=== PATIENT | female | born 2000 | race Caucasian/White ===

== ENCOUNTER 2022-10-09 14:52 | Emergency (ER) | payer MEDICAID ==
[2022-10-09 15:58] VITALS: BP 107/75; TEMP 98.3
[2022-10-09 16:05] VITALS: PULSE 64; RESP 18
[2022-10-09] MEDS ORDERED: Cortisporin Ophth Oint 3.5 GM ONE (16:06)
--- NOTE | 2022-10-09 16:07 | ERPHSYRPT ---
- History of Present Illness Time Seen by Provider: 10/09/22 16:04 Source: patient Exam Limitations: no limitations Patient Subjective Stated Complaint: here for bilat ear pain for 2 days, no fever, was seen at clinic yesterday and given nasal spray Triage Nursing Assessment: pt alert, walked. resp easy, skin w/d/p, no edema ntoed Physician History: here for bilat ear pain for 2 days, no fever, was seen at clinic yesterday and given nasal spray Timing/Duration: gradual onset ENT Location: ear (L) Prearrival Treatment: no prearrival treatment Associated Symptoms: denies symptoms Allergies/Adverse Reactions: No Known Drug Allergies Allergy (Unverified 10/09/22 15:50) Home Medications: Cephalexin Mh 500 mg [Keflex 500 mg] 500 mg PO TID 10/09/22 [History] Hx Tetanus, Diphtheria Vaccination/Date Given: Yes Hx Influenza Vaccination/Date Given: No Hx Pneumococcal Vaccination/Date Given: No Immunizations Up to Date: Yes Travel Risk - International Travel Have you traveled outside of the country in past 3 weeks: No - Coronavirus Screening Are you exhibiting any of the following symptoms?: No - Vaccine Status Have you recieved a Covid-19 vaccination: No - Review of Systems Constitutional: No Fever, No Chills Eyes: No Symptoms Ears, Nose, & Throat: Ear Pain, No Ear Discharge, No Hearing Changes, No Tinnitus, No Nose Discharge Respiratory: No Cough, No Dyspnea Cardiac: No Chest Pain, No Edema, No Syncope Abdominal/Gastrointestinal: No Abdominal Pain, No Nausea, No Vomiting, No Diarrhea Genitourinary Symptoms: No Dysuria Musculoskeletal: No Back Pain, No Neck Pain Skin: No Rash Neurological: No Dizziness, No Focal Weakness, No Sensory Changes Psychological: No Symptoms Endocrine: No Symptoms All Other Systems: Reviewed and Negative - Past Medical History Pertinent Past Medical History: No - Past Surgical History Past Surgical History: Yes Other Surgical History: tubes in ears - Social History Smoking Status: Never smoker Exposure to second hand smoke: No Drug Use: none Patient Lives Alone: No - Female History Hx Last Menstrual Period: september Hx Now: No - Nursing Vital Signs Nursing Vital Signs: Initial Vital Signs Temperature 98.3 F 10/09/22 15:57 Pulse Rate 70 10/09/22 15:57 Respiratory Rate 16 10/09/22 15:57 Blood Pressure 107/75 10/09/22 15:57 O2 Sat by Pulse Oximetry 96 10/09/22 15:57 Pain Scale Pain Intensity 10 - Physical Exam General Appearance: no apparent distress, alert Eye Exam: bilateral eye: PERRL, EOMI Ear Exam: bilateral ear: auricle normal, canal normal, TM normal Nasal Exam: normal inspection Throat Exam: pharynx normal, moist mucus membranes, No tonsillar exudate Neck Exam: supple Cardiovascular/Respiratory Exam: normal breath sounds, regular rate/rhythm Abdominal Exam: non-tender, soft Neurologic Exam: alert, oriented x 3, sensation nml, No motor deficits Skin Exam: normal color, warm, dry SpO2: 96 - Course Nursing assessment & vital signs reviewed: Yes - Progress Progress: unchanged Counseled pt/family regarding: diagnosis, need for follow-up Medical Desision Making - Risk of complications Minimal Risk: Minimal risk of morbidity - Departure Departure Disposition: Home Clinical Impression: Allergic otitis media of both ears Qualifiers: Chronicity: subacute Recurrence: recurrent Qualified Code(s): H65.116 - Acute and subacute allergic otitis media (mucoid) (sanguinous) (serous), recurrent, bilateral Condition: Stable Critical Care Time: No Referrals: KRYSTINA MUELLER PETROLEUM ENGINEER [Primary Care Provider] - Follow Up with PCP/3 days Additional Instructions: Use [id number] Claritin 10 mg daily or Zyrtec 10 mg daily. Continue using nasal spray and your antibiotic which was given to you yesterday. Follow-up with your primary care physician in next 3 days. Discharge/Care Plan GLORIA LA was seen on 10/09/22 in the Emergency Room. The patient was counseled regarding Diagnosis,Lab results, Imaging studies, need for follow up and when to return to the Emergency Room. Prescriptions given: Discharge Note I have spoken with the patient and/or caregivers. I have explained the patient's condition, diagnosis and treatment plan based on the information available to me at this time. I have answered the patient's and/or caregiver's questions and add ressed any concerns. The patient and/or caregivers have as good understanding of the patient's diagnosis, condition and treatment plan as can be expected at this point. The vital signs have been stable. The patient's condition is stable and appropriate for discharge from the emergency department. The patient will pursue further outpatient evaluation with the primary care physician or other designated or consulting physician as outlined in the discharge instructions. The patient and/or caregivers are agreeable to this plan of care and follow-up instructions have been explained in detail. The patient and/or caregivers have received these instruction. The patient/and or caregivers are aware that any significant change in condition or worsening of symptoms should prompt an immediate return to this or the closest emergency department or call 911. GLORIA LA was seen on 10/09/22 n the Emergency Room. At that time you were treated for an emergent condition, during your visit Laboratory, Radiology and/or other procedures may have been ordered. It is very important that you follow-up with your Primary Care Physician KRYSTINA MUELLER NP within the next 24-48 hours to review your Emergency Room visit and the final results of testing that was ordered. Some test results such as Urine Cultures, Blood Cu ltures, and other cultures if ordered will not be finalized for 24-48 hours. If you do not have a Primary Care Provider please call the medical records department at [phone] ext [phone] to obtain a copy of your results or you may sign into our patient portal to obtain these results by visiting us @ [email or web address] and completing the following steps: 1. Click on the Patient Portal link 2. Click the Patient Self Enrollment Link to complete the enrollment form and entering your 3. Once the enrollment form is completed you will receive an email with a t emporary ID and password at the email address you provided. 4. Next choose a user name and password. Your user name must be at least 4 characters long and your password must be at least 4 characters long. 5. Choose a security question from the list and provide your answer to the question. If you already have signed into the Health Portal you may access your Health Care Information 27/09 by the following steps: 1. Login to our website @ [email or web address] 2. Enter your original user name and password. FAQS The [facility] Health Portal is an online tool that contains your Lab Results, Radiology Reports, Visit History, Discharge Instructions and Health Summary Lab and Radiology Results will not be available for 72 hours on the portal. The Portal is a secure site, passwords are encryted and URLs are re-written so they cannot be copied and pasted. You and authorized family members are the only ones who can access your Portal. Also there is a timeout feature that protects your information if you leave the Portal page open. If you have technical difficulty please use the Contact Us link on the page this will allow you to submit any questions you have regarding the Portal or you may contact the Medical Record Department at [phone].
[2022-10-09 16:09] VITALS: O2SAT 96
[2022-10-09] MEDS ORDERED: CORTISPORIN EAR DROPS 10 ML SUSPENSION OT ONE (16:09)
[2022-10-09] MEDS ORDERED: CORTISPORIN EAR DROPS Solution 1OML OT SCH (16:15)
[2022-10-10] MEDS ORDERED: CORTISPORIN EAR DROPS 10 ML SUSPENSION OT SCH (10:00)
== END 2022-10-09 16:28 | disposition home or self-care (01) ==
LOC: ED 14:52
DX: H65.116 Acute and subacute allergic otitis media (mucoid) (sanguinous) (serous), recurrent, bilateral (principal); H92.03 Otalgia, bilateral; Z79.899 Other long term (current) drug therapy; Z28.310 Unvaccinated for COVID-19
CPT/HCPCS: 99281; A9270-GY

== ENCOUNTER 2023-05-09 23:57 | Emergency (ER) | payer MEDICAID, OTHER ==
--- NOTE | 2023-05-10 00:06 | ERPHSYRPT ---
- History of Present Illness Time Seen by Provider: 05/10/23 00:06 Historian: patient, family Exam Limitations: no limitations Physician History: This is a 22-year-old white female patient who has multiple pain complaints including bilateral lower ribs, epigastric, bilateral upper quadrants and flank pain. Patient is on Diflucan for a yeast infection. She does state that she is supposed to get the results of her urinalysis sometime later today on 05/10/2023. Diflucan is the only medication she is taking. She has no known drug allergies. She never had this pain sequence in the past. Timing/Duration: hour(s) (Greater than 24 hours ago) Activities at Onset: none Quality: sharpness, stabbing Location: epigastric Chest Pain Radiation: abdomen (Bilateral upper quadrants) Severity of Pain-Max: mild (To moderate) Severity of Pain-Current: mild (To moderate) Modifying Factors: Improves With: nothing Associated Symptoms: abdominal pain (Epigastric and bilateral upper quadrants) Prior Chest Pain/Cardiac Workup: no prior chest pain, no prior cardiac workup Nitro Today/Relief: no nitro taken today Aspirin Treatment Today: no aspirin today Allergies/Adverse Reactions: No Known Drug Allergies Allergy (Verified 05/09/23 23:59) Home Medications: Fluconazole 150 mg PO DAILY 05/09/23 [History] Hx Tetanus, Diphtheria Vaccination/Date Given: Yes Hx Influenza Vaccination/Date Given: No Hx Pneumococcal Vaccination/Date Given: No Travel Risk - International Travel Have you traveled outside of the country in past 3 weeks: No - Coronavirus Screening Are you exhibiting any of the following symptoms?: No Close contact with a COVID-19 positive Pt in past 14-21 Days: No - Vaccine Status Have you recieved a Covid-19 vaccination: No - Review of Systems Constitutional: No Symptoms Eyes: No Symptoms Ears, Nose, & Throat: No Symptoms Respiratory: No Symptoms Cardiac: No Symptoms Abdominal/Gastrointestinal: Abdominal Pain (Epigastric and bilateral upper quadrants) Genitourinary Symptoms: No Symptoms Musculoskeletal: No Symptoms Skin: No Symptoms Neurological: No Symptoms Psychological: No Symptoms Endocrine: No Symptoms Hematologic/Lymphatic: No Symptoms Immunological/Allergic: No Symptoms All Other Systems: Reviewed and Negative - Past Medical History Pertinent Past Medical History: No - Past Surgical History Past Surgical History: Yes Other Surgical History: tubes in ears - Social History Smoking Status: Never smoker Exposure to second hand smoke: No Drug Use: none Patient Lives Alone: No - Nursing Vital Signs Nursing Vital Signs: Initial Vital Signs Temperature 98.6 F 05/09/23 23:59 Pulse Rate 98 H 05/09/23 23:59 Respiratory Rate 18 05/09/23 23:59 Blood Pressure 113/87 05/09/23 23:59 O2 Sat by Pulse Oximetry 100 05/09/23 23:59 Pain Scale Pain Intensity 4 - Physical Exam General Appearance: mild distress, alert, anxiety, thin Eye Exam: PERRL/EOMI, eyes nml inspection Ears, Nose, Throat Exam: normal ENT inspection, moist mucous membranes Neck Exam: normal inspection, non-tender, supple, full range of motion Respiratory Exam: normal breath sounds, lungs clear, airway intact, No chest tenderness, No respiratory distress Cardiovascular Exam: regular rate/rhythm, normal heart sounds, normal peripheral pulses Gastrointestinal/Abdomen Exam: soft, normal bowel sounds, tenderness (Lateral upper quadrants and epigastrium), guarding (Bilateral upper quadrants and epigastrium to palpation), No rebound Pelvic Exam: not done Rectal Exam: not done Extremity Exam: normal inspection, normal range of motion, pelvis stable Neurologic Exam: alert, oriented x 3, cooperative, metal bending machine operator II-XII nml as tested, nml cerebellar function, nml station & gait, sensation nml Skin Exam: normal color, warm, dry Lymphatic Exam: No adenopathy SpO2 Interpretation: normal O2 Delivery: Room Air - Course Nursing assessment & vital signs reviewed: Yes EKG Interpreted by Me: RATE (92), Sinus Rhythm, NORMAL AXIS, NORMAL INTERVALS, NORMAL QRS, NORMAL ST-T, Other Ordered Tests: Active Orders 24 hr Category Date Time Status EKG-ER Only STAT Care 05/10/23 00:19 Active IV Insertion STAT Care 05/10/23 00:19 Active ABDOMEN AND PELVIS W/0 CONTRAS [CT] Stat Exams 05/10/23 00:20 Completed AMYLASE Stat Lab 05/10/23 00:25 Completed CBC W DIFF Stat Lab 05/10/23 00:19 Completed CMP Stat Lab 05/10/23 00:25 Completed HCG QUALITATIVE, SERUM Stat Lab 05/10/23 00:25 Completed LIPASE Stat Lab 05/10/23 00:25 Completed TROPONIN Q4H Lab 05/10/23 00:25 Completed TROPONIN Q4H Lab 05/10/23 04:30 Ordered TROPONIN Q4H Lab 05/10/23 08:30 Ordered UA W/RFX UR CULTURE Stat Lab 05/10/23 00:25 Completed Medication Summary Discontinued Medications Generic Name Dose Route Start Last Admin Trade Name Monisha PRN Reason Stop Dose Admin Sodium Chloride 500 mls @ 500 mls/hr 05/10/23 01:22 05/10/23 02:41 Sodium Chloride 0.9% 500 Ml IV 05/10/23 02:21 Infused .Q1H ONE Infusion Sodium Chloride Confirm 05/10/23 01:35 Sodium Chloride 0.9% 500 Ml Administered 05/10/23 01:36 Dose 500 mls @ ud IV .STK-MED ONE Ketorolac Tromethamine 30 mg 05/10/23 02:27 05/10/23 02:33 Ketorolac Tromethamine 30 Mg/Ml Inj IV 05/10/23 02:28 30 mg STAT ONE Administration Ketorolac Tromethamine Confirm 05/10/23 02:31 Ketorolac Tromethamine 30 Mg/Ml Inj Administered 05/10/23 02:32 Dose 30 mg .ROUTE .STK-MED ONE Ondansetron HCl 4 mg 05/10/23 02:27 05/10/23 02:33 Ondansetron Hcl 4 Mg/2 Ml Vial IV 05/10/23 02:28 4 mg STAT ONE Administration Ondansetron HCl Confirm 05/10/23 02:31 Ondansetron Hcl 4 Mg/2 Ml Vial Administered 05/10/23 02:32 Dose 4 mg .ROUTE .STK-MED ONE Lab/Rad Data: Laboratory Result Diagrams 05/10/23 00:19 05/10/23 00:25 Laboratory Results 05/10/23 05/10/23 05/10/23 Range/Units 00:25 00:25 00:25 WBC (4.0-10.5) x10^3/uL RBC (4.1-5.4) x10^6/uL Hgb (12.0-16.0) g/dL Hct (35-47) % MCV (78-100) fL MCH (26-32) pg MCHC (32-36) g/dL RDW (11.5-14.0) % Plt Count (150-450) x10^3/uL MPV (7.5-11.0) fL Gran % (36.0-66.0) % Immature Gran % (Auto) (0.00-0.4) % Nucleat RBC Rel Count (0.00-0.1) % Eos # (Auto) (0-0.5) x10^3/uL Immature Gran # (Auto) (0.00-0.03) x10^3u/L Absolute Lymphs (auto) (1.0-4.6) x10^3/uL Absolute Monos (auto) (0.0-1.3) x10^3/uL Absolute Nucleated RBC (0.00-0.01) x10^3u/L Lymphocytes % (24.0-44.0) % Monocytes % (0.0-12.0) % Eosinophils % (0.00-5.0) % Basophils % (0.0-0.4) % Absolute Granulocytes (1.4-6.9) x10^3/uL Basophils # (0-0.4) x10^3/uL Sodium 138 (135-145) mmol/L Potassium 3.7 (3.5-5.1) mmol/L Chloride 101 (98-107) mmol/L Carbon Dioxide 25 (22-30) mmol/L Anion Gap 15.5 H (5-15) MEQ/L BUN 14 (7-17) mg/dL Creatinine 0.71 (0.52-1.04) mg/dL Estimated GFR 124.8 ML/MIN Glucose 116 H (74-106) mg/dL Calcium 10.3 H (8.4-10.2) mg/dL Total Bilirubin 2.00 H (0.2-1.3) mg/dL AST 44 H (14-36) U/L ALT 42 H (0-35) U/L Alkaline Phosphatase 105 (38-126) U/L Troponin I < 0.012 (0.000-0.034) ng/mL Serum Total Protein 8.3 H (6.3-8.2) g/dL Albumin 4.9 (3.5-5.0) g/dL Amylase 88 (30-110) U/L Lipase 102 (23-300) U/L Serum HCG, Qual NEGATIVE (NEGATIVE) Urine Color (Yellow) Urine Appearance (Clear) Urine pH (4.6-8.0) Ur Specific [place] (1.005-1.030) Urine Protein (Negative) Urine Glucose (UA) (Negative) mg/dL Urine Ketones (Negative) Urine Blood (Negative) Urine Nitrite (Negative) Urine Bilirubin (Negative) Urine Urobilinogen (0.2) mg/dL Ur Leukocyte Esterase (Negative) U Hyaline Cast (Auto) (0-2) /LPF Urine Microscopic RBC (0-5) /HPF Urine Microscopic WBC (0-5) /HPF Ur Epithelial Cells (None Seen) /HPF Urine Bacteria (None Seen) /HPF Urine Culture Reflexed (NO) 05/10/23 05/10/23 Range/Units 00:25 00:19 WBC 14.7 H (4.0-10.5) x10^3/uL RBC 4.38 (4.1-5.4) x10^6/uL Hgb 13.2 (12.0-16.0) g/dL Hct 40.0 (35-47) % MCV 91.3 (78-100) fL MCH 30.1 (26-32) pg MCHC 33.0 (32-36) g/dL RDW 12.4 (11.5-14.0) % Plt Count 241 (150-450) x10^3/uL MPV 10.1 (7.5-11.0) fL Gran % 81.6 H (36.0-66.0) % Immature Gran % (Auto) 0.5 H (0.00-0.4) % Nucleat RBC Rel Count 0.0 (0.00-0.1) % Eos # (Auto) 0.02 (0-0.5) x10^3/uL Immature Gran # (Auto) 0.08 H (0.00-0.03) x10^3u/L Absolute Lymphs (auto) 1.71 (1.0-4.6) x10^3/uL Absolute Monos (auto) 0.85 (0.0-1.3) x10^3/uL Absolute Nucleated RBC 0.00 (0.00-0.01) x10^3u/L Lymphocytes % 11.7 L (24.0-44.0) % Monocytes % 5.8 (0.0-12.0) % Eosinophils % 0.1 (0.00-5.0) % Basophils % 0.3 (0.0-0.4) % Absolute Granulocytes 11.96 H (1.4-6.9) x10^3/uL Basophils # 0.04 (0-0.4) x10^3/uL Sodium (135-145) mmol/L Potassium (3.5-5.1) mmol/L Chloride (98-107) mmol/L Carbon Dioxide (22-30) mmol/L Anion Gap (5-15) MEQ/L BUN (7-17) mg/dL Creatinine (0.52-1.04) mg/dL Estimated GFR ML/MIN Glucose (74-106) mg/dL Calcium (8.4-10.2) mg/dL Total Bilirubin (0.2-1.3) mg/dL AST (14-36) U/L ALT (0-35) U/L Alkaline Phosphatase (38-126) U/L Troponin I (0.000-0.034) ng/mL Serum Total Protein (6.3-8.2) g/dL Albumin (3.5-5.0) g/dL Amylase (30-110) U/L Lipase (23-300) U/L Serum HCG, Qual (NEGATIVE) Urine Color Yellow (Yellow) Urine Appearance Turbid A (Clear) Urine pH 7.5 (4.6-8.0) Ur Specific [place] 1.025 (1.005-1.030) Urine Protein Trace A (Negative) Urine Glucose (UA) Negative (Negative) mg/dL Urine Ketones 40 A (Negative) Urine Blood Negative (Negative) Urine Nitrite Negative (Negative) Urine Bilirubin Negative (Negative) Urine Urobilinogen 0.2 (0.2) mg/dL Ur Leukocyte Esterase Negative (Negative) U Hyaline Cast (Auto) NONE SEEN (0-2) /LPF Urine Microscopic RBC 0-2 (0-5) /HPF Urine Microscopic WBC 0-2 (0-5) /HPF Ur Epithelial Cells Few (None Seen) /HPF Urine Bacteria None Seen (None Seen) /HPF Urine Culture Reflexed NO (NO) - Progress Progress: improved, re-examined Air Movement: good Progress Note: 05/10/23 00:18 This patient's medical issue is 1 of moderate complexity. The level of co mplexity in the workup performed is based on review of the patient's past medical history, review of the patient's medication list, review of the patient's drug allergy list, history present illness and physical findings on examination. The workup in this patient includes placement of intravenous line, CBC, CMP, urinalysis, amylase, lipase, D-dimer, troponin level and CT scan of the abdomen and pelvis as well as test. 05/10/23 03:25 I interpreted the patient's laboratory data results. Patient has mildly elevated LFTs of uncertain significance. Patient has evidence of ketones in her urine which could suggest dehydration. CT scan of the abdomen pelvis was interpreted by the radiologist. There are no acute abnormality seen in the abdomen pelvis by noncontrast criteria. There are a few reactive right ileocecal valve lymph nodes.? Mesenteric adenitis. Blood Culture(s) Obtained: No Antibiotics given: No Counseled pt/family regarding: lab results, diagnosis, need for follow-up, rad results Medical Desision Making - Independent Historian Additional History obtained from: Relative/friend - Diagnostic Testing Diagnostic test were ordered, analyzed, and reviewed by me: Yes Radiological Interpretation: Reviewed by me, Teleradiologist Report - Risk of complications Minimal Risk: Minimal risk of morbidity - Departure Departure Disposition: Home Clinical Impression: Abdominal pain, Flank pain, Dehydration, Elevated LFTs Condition: Stable Critical Care Time: No Referrals: PANDA PIZARRO NP [NON-STAFF PHY W/O PRIVILEGES] - Follow up/PCP as directed Additional Instructions: Drink plenty of fluids. Hold your Diflucan until you speak with your prescriber later today, 05/10/2023, to determine if the need for Diflucan is still necessary. Use Tylenol and ibuprofen for pain control if there are no contraindications.
[2023-05-10 00:15] VITALS: TEMP 98.6
[2023-05-10 00:35] LABS: Absolute Neutrophil Ct (ANC) 11.96 x10^3/uL (1.4-6.9); BASOPHIL % 0.3 % (0.0-0.4); Basophil (Absolute #) 0.04 x10^3/uL (0-0.4); Eosinophil % 0.1 % (0.00-5.0); Eosinophil (Absolute #) 0.02 x10^3/uL (0-0.5); Hemoglobin 13.2 g/dL (12.0-16.0); IMMATURE GRAN # 0.08 x10^3u/L (0.00-0.03); IMMATURE GRAN % 0.5 % (0.00-0.4); Lymphocyte (Absolute #) 1.71 x10^3/uL (1.0-4.6); Lymphocytes % 11.7 % (24.0-44.0); Mean Cell Volume 91.3 fL (78-100); Mean Corpuscular Hemoglobin 30.1 pg (26-32); Mean Platelet Volume 10.1 fL (7.5-11.0); Monocyte (Absolute #) 0.85 x10^3/uL (0.0-1.3); Monocytes % 5.8 % (0.0-12.0); Neutrophil % 81.6 % (36.0-66.0); Platelet Count 241 x10^3/uL (150-450); Red Blood Count 4.38 x10^6/uL (4.1-5.4); Red Cell Distribution Width 12.4 % (11.5-14.0); White Blood Count 14.7 x10^3/uL (4.0-10.5)
[2023-05-10 00:42] LABS: Appearance Turbid (Clear); Bacteria None Seen /HPF (None Seen); Bilirubin Negative (Negative); Blood Negative (Negative); Epithelial Cells Few /HPF (None Seen); Glucose, Urine Negative (Negative); Hyaline Casts NONE SEEN /LPF (0-2); Ketones 40 (Negative); Leukocyte Esterase Negative (Negative); Nitrite Negative (Negative); Ph 7.5 (4.6-8.0); Protein,Urine Dip Trace (Negative); RBC 0-2 /HPF (0-5); Specific Gravity 1.025 (1.005-1.030); Urobilinogen 0.2 mg/dL (0.2); WBC 0-2 /HPF (0-5)
[2023-05-10 00:45] LABS: ADD URINE CULTURE? NO (NO)
[2023-05-10 00:49] LABS: HCG SERUM TEST NEGATIVE (NEGATIVE)
[2023-05-10 00:52] LABS: ALBUMIN 4.9 g/dL (3.5-5.0); ANION GAP 15.5 MEQ/L (5-15); Calcium 10.3 mg/dL (8.4-10.2); Creatinine 1 0.71 mg/dL (0.52-1.04); EST GLOMERULAR FILTRATION RATE 124.8 ML/MIN; Potassium 3.7 mmol/L (3.5-5.1); Total Protein 8.3 g/dL (6.3-8.2)
[2023-05-10] MEDS ORDERED: Sodium Chloride 0.9% 500 ML 500 ML IV ONE (01:35)
[2023-05-10] MEDS: Sodium Chloride 0.9% 500 ML 500 ML IV ONE (01:41)
[2023-05-10] MEDS ORDERED: Zofran 4 MG/2 ML VIAL ONE (02:31)
[2023-05-10] MEDS ORDERED: TORAdol 30 mg Injection ONE (02:31)
[2023-05-10] MEDS: Zofran 4 MG/2 ML VIAL IV ONE (02:33)
[2023-05-10] MEDS: TORAdol 30 mg Injection IV ONE (02:33)
--- NOTE | 2023-05-10 02:37 | XRAY ---
CLINICAL HISTORY: B UQ and epigastric abdominal pain TECHNIQUE: CT of the abdomen and pelvis was performed with axial images as well as sagittal and coronal reconstruction images without intravenous contrast. DLP 130.53 mGy*cm, CTDI: 2.57 mGy COMPARISON: None. FINDINGS: Scanned lung bases are unremarkable. The liver is average in size. No definite focal lesions by non-contrast criteria. No intrahepatic biliary radicle dilation. Unremarkable appearing gallbladder with no stones wall thickening or pericholecystic inflammatory changes or fluid. Unremarkable NECT appearance of the spleen, pancreas and adrenal glands. The kidneys appear unremarkable with no calculi, cysts masses or hydronephrosis. The urinary bladder is partially filled, no calculi are noted. No gross uterine or adnexal lesions. The stomach appears unremarkable. The small and large bowel loops are of average caliber with no evidence of obstruction. The appendix is not delineated amidst crowdenning of bowel loops yet no inflammatory changes are seen in the right iliac fossa. Few reactionary right ileocecal lymph nodes are seen. No suspiciously enlarged retroperitoneal lymph nodes. Unremarkable abdominal aorta without evidence of aneurysm No lytic or sclerotic lesions in the visualized aspects of the spine. IMPRESSION: 1. No acute abnormality is seen in the abdomen and pelvis by non-contrast criteria. 2. The appendix is not delineated amidst the crowdenning of bowel loops yet no inflammatory changes are seen in the right iliac fossa. 3. Few reactionary right ileocecal lymph nodes could be of no clinical relevance or might represent mild mesenteric adenitis. Electronically Signed by: Fabienne Mahmood MD. (05/10/2023 02:32:23 EST)
[2023-05-10 03:01] VITALS: BP 136/89; PULSE 89; RESP 16; O2SAT 97
== END 2023-05-10 03:44 | disposition home or self-care (01) ==
LOC: ED 23:57
DX: R10.9 Unspecified abdominal pain (principal); E86.0 Dehydration; R94.5 Abnormal results of liver function studies; R07.81 Pleurodynia; Z79.899 Other long term (current) drug therapy; Z28.310 Unvaccinated for COVID-19
CPT/HCPCS: 36000; 36415; 74176; 80053; 81001; 82150; 83690; 84484; 84703; 85025; 93005; 96374; 96375; 99284; J1885; J2405

== ENCOUNTER 2024-01-23 23:14 | Emergency (ER) | payer OTHER ==
[2024-01-23 23:30] VITALS: RESP 16; TEMP 98.2
--- NOTE | 2024-01-23 23:32 | ERPHSYRPT ---
- History of Present Illness Historian: patient Exam Limitations: no limitations Physician History: Patient's had abdominal pain. Is been in the low abdomen. She says it radiates up around her flanks. She was treated for a UTI about a week ago. She was given 3 days of Levaquin. She said that she does not feel like it helped. She got a recheck and they said that the UTI gone away. She has not had any fever or chills. Her last period was about 2 or 3 weeks ago was on time and regular. She denies any . She does not have any vaginal discharge or bleeding. She has no nausea vomiting or diarrhea. The pain in the low abdomen is described as an ache.Nothing really makes it better or worse. Allergies/Adverse Reactions: No Known Drug Allergies Allergy (Verified 01/23/24 23:40) Home Medications: No Reportable Medications [No Reported Medications] 01/23/24 [History] Hx Tetanus, Diphtheria Vaccination/Date Given: Yes Hx Influenza Vaccination/Date Given: No Hx Pneumococcal Vaccination/Date Given: No - Review of Systems Constitutional: No Symptoms Eyes: No Symptoms Ears, Nose, & Throat: No Symptoms Respiratory: No Symptoms Genitourinary Symptoms: Dysuria Musculoskeletal: No Symptoms Skin: No Symptoms Neurological: No Symptoms All Other Systems: Reviewed and Negative - Past Medical History Pertinent Past Medical History: No Neurological History: No Pertinent History ENT History: No Pertinent History Cardiac History: Other Respiratory History: No Pertinent History Endocrine Medical History: No Pertinent History Musculoskeletal History: No Pertinent History GI Medical History: No Pertinent History History: No Pertinent History Psycho-Social History: No Pertinent History Female Reproductive Disorders: No Pertinent History Other Medical History: leaky heart valve - Past Surgical History Past Surgical History: Yes Neuro Surgical History: No Pertinent History Cardiac: No Pertinent History Respiratory: No Pertinent History Gastrointestinal: No Pertinent History Genitourinary: No Pertinent History Musculoskeletal: No Pertinent History Female Surgical History: No Pertinent History Other Surgical History: tubes in ears - Social History Smoking Status: Never smoker Exposure to second hand smoke: No Drug Use: none Patient Lives Alone: No - Nursing Vital Signs Nursing Vital Signs: Initial Vital Signs Temperature 98.2 F 01/23/24 23:27 Pulse Rate 96 H 01/23/24 23:27 Respiratory Rate 16 01/23/24 23:27 Blood Pressure 103/74 01/23/24 23:27 O2 Sat by Pulse Oximetry 99 01/23/24 23:27 Pain Scale Pain Intensity 4 - Physical Exam General Appearance: no apparent distress Eye Exam: PERRL/EOMI Neck Exam: normal inspection Respiratory Exam: normal breath sounds, lungs clear, No chest tenderness, No respiratory distress Cardiovascular Exam: regular rate/rhythm, normal heart sounds Gastrointestinal/Abdomen Exam: soft, normal bowel sounds, No tenderness, No distention, No mass Pelvic Exam: not done Rectal Exam: deferred Back Exam: normal inspection Extremity Exam: normal inspection SpO2: 99 - Course Nursing assessment & vital signs reviewed: Yes Ordered Tests: Active Orders 24 hr Category Date Time Status CBC W DIFF Stat Lab 01/23/24 23:40 Completed CMP Stat Lab 01/23/24 23:40 Completed HCG QUALITATIVE, SERUM Stat Lab 01/23/24 23:40 Completed UA W/RFX UR CULTURE Stat Lab 01/23/24 23:39 Completed Lab/Rad Data: Laboratory Result Diagrams 01/23/24 23:40 01/23/24 23:40 Laboratory Results 01/23/24 01/23/24 01/23/24 Range/Units 23:40 23:40 23:40 WBC 7.5 (3.98-10.04) x10^3/uL RBC 4.45 (3.93-5.22) x10^6/uL Hgb 13.6 (11.2-15.7) g/dL Hct 40.0 (34.1-44.9) % MCV 89.9 (79.4-94.8) fL MCH 30.6 (25.6-32.2) pg MCHC 34.0 (32.2-35.5) g/dL RDW 12.2 (11.7-14.4) % Plt Count 207 (182-369) x10^3/uL MPV 10.5 (9.4-12.3) fL Gran % 57.7 (34.0-71.1) % Immature Gran % (Auto) 0.4 (0.001-0.429) % Nucleat RBC Rel Count 0.0 (0.00-0.2) % Eos # (Auto) 0.13 (0.04-0.36) x10^3/uL Immature Gran # (Auto) 0.03 (0.001-0.031) x10^3u/L Absolute Lymphs (auto) 2.52 (1.18-3.74) x10^3/uL Absolute Monos (auto) 0.46 (0.24-0.86) x10^3/uL Absolute Nucleated RBC 0.00 (0.00-0.012) x10^3u/L Lymphocytes % 33.6 (19.3-51.7) % Monocytes % 6.1 (4.7-12.5) % Eosinophils % 1.7 (0.7-5.8) % Basophils % 0.5 (0.1-1.2) % Absolute Granulocytes 4.31 (1.56-6.13) x10^3/uL Basophils # 0.04 (0.01-0.08) x10^3/uL Sodium 139 (135-145) mmol/L Potassium 4.2 (3.5-5.1) mmol/L Chloride 106 (98-107) mmol/L Carbon Dioxide 24 (22-30) mmol/L Anion Gap 13.5 (5-15) MEQ/L BUN 15 (7-17) mg/dL Creatinine 0.83 (0.52-1.04) mg/dL Estimated GFR 102.8 ML/MIN Glucose 99 (74-106) mg/dL Calcium 9.3 (8.4-10.2) mg/dL Total Bilirubin 1.60 H (0.2-1.3) mg/dL AST 21 (14-36) U/L ALT 18 (0-35) U/L Alkaline Phosphatase 61 (38-126) U/L Serum Total Protein 7.3 (6.3-8.2) g/dL Albumin 4.3 (3.5-5.0) g/dL Serum HCG, Qual NEGATIVE (NEGATIVE) Urine Color (Yellow) Urine Appearance (Clear) Urine pH (4.6-8.0) Ur Specific [place] (1.005-1.030) Urine Protein (Negative) Urine Glucose (UA) (Negative) mg/dL Urine Ketones (Negative) Urine Blood (Negative) Urine Nitrite (Negative) Urine Bilirubin (Negative) Urine Urobilinogen (0.2) mg/dL Ur Leukocyte Esterase (Negative) U Hyaline Cast (Auto) (0-2) /LPF Urine Microscopic RBC (0-5) /HPF Urine Microscopic WBC (0-5) /HPF Ur Epithelial Cells (None Seen) /HPF Urine Bacteria (None Seen) /HPF Urine Culture Reflexed (NO) Chlamydia DNA Probe (NEGATIVE) N.gonorrhoeae DNA Probe (NEGATIVE) 01/23/24 01/23/24 Range/Units 23:39 23:39 WBC (3.98-10.04) x10^3/uL RBC (3.93-5.22) x10^6/uL Hgb (11.2-15.7) g/dL Hct (34.1-44.9) % MCV (79.4-94.8) fL MCH (25.6-32.2) pg MCHC (32.2-35.5) g/dL RDW (11.7-14.4) % Plt Count (182-369) x10^3/uL MPV (9.4-12.3) fL Gran % (34.0-71.1) % Immature Gran % (Auto) (0.001-0.429) % Nucleat RBC Rel Count (0.00-0.2) % Eos # (Auto) (0.04-0.36) x10^3/uL Immature Gran # (Auto) (0.001-0.031) x10^3u/L Absolute Lymphs (auto) (1.18-3.74) x10^3/uL Absolute Monos (auto) (0.24-0.86) x10^3/uL Absolute Nucleated RBC (0.00-0.012) x10^3u/L Lymphocytes % (19.3-51.7) % Monocytes % (4.7-12.5) % Eosinophils % (0.7-5.8) % Basophils % (0.1-1.2) % Absolute Granulocytes (1.56-6.13) x10^3/uL Basophils # (0.01-0.08) x10^3/uL Sodium (135-145) mmol/L Potassium (3.5-5.1) mmol/L Chloride (98-107) mmol/L Carbon Dioxide (22-30) mmol/L Anion Gap (5-15) MEQ/L BUN (7-17) mg/dL Creatinine (0.52-1.04) mg/dL Estimated GFR ML/MIN Glucose (74-106) mg/dL Calcium (8.4-10.2) mg/dL Total Bilirubin (0.2-1.3) mg/dL AST (14-36) U/L ALT (0-35) U/L Alkaline Phosphatase (38-126) U/L Serum Total Protein (6.3-8.2) g/dL Albumin (3.5-5.0) g/dL Serum HCG, Qual (NEGATIVE) Urine Color Yellow (Yellow) Urine Appearance Clear (Clear) Urine pH 5.5 (4.6-8.0) Ur Specific [place] >=1.030 A (1.005-1.030) Urine Protein Negative (Negative) Urine Glucose (UA) Negative (Negative) mg/dL Urine Ketones Negative (Negative) Urine Blood Negative (Negative) Urine Nitrite Negative (Negative) Urine Bilirubin Negative (Negative) Urine Urobilinogen 1.0 A (0.2) mg/dL Ur Leukocyte Esterase Negative (Negative) U Hyaline Cast (Auto) NONE SEEN (0-2) /LPF Urine Microscopic RBC 0-2 (0-5) /HPF Urine Microscopic WBC 0-2 (0-5) /HPF Ur Epithelial Cells Rare (None Seen) /HPF Urine Bacteria None Seen (None Seen) /HPF Urine Culture Reflexed NO (NO) Chlamydia DNA Probe NOT DETECTED (NEGATIVE) N.gonorrhoeae DNA Probe NOT DETECTED (NEGATIVE) - Progress Progress: improved Progress Note: Patient was stable throughout stay. On the differential was appendicitis, pyelonephritis, UTI, gastroenteritis, enteritis. Her labs all look good. I do not think she has PID. Her UA and GC and Chlamydia were negative. She does not have a white count or any elevations of her lipase or transaminases. I think she has benign abdominal pain 5 most likely viral enteritis. She is not requesting anything for pain. 01/24/24 01:24 Medical Desision Making - Independent Historian Additional History obtained from: Spouse - Diagnostic Testing Diagnostic test were ordered, analyzed, and reviewed by me: Yes - Risk of complications Minimal Risk: Minimal risk of morbidity - Departure Departure Disposition: Home Clinical Impression: Abdominal pain Condition: Stable Critical Care Time: No Referrals: RENNY HUERTA NP [Primary Care Provider] - Follow up/PCP as directed Instructions: Abdominal pain
[2024-01-23 23:45] LABS: Absolute Neutrophil Ct (ANC) 4.31 x10^3/uL (1.56-6.13); BASOPHIL % 0.5 % (0.1-1.2); Basophil (Absolute #) 0.04 x10^3/uL (0.01-0.08); Eosinophil % 1.7 % (0.7-5.8); Eosinophil (Absolute #) 0.13 x10^3/uL (0.04-0.36); Hemoglobin 13.6 g/dL (11.2-15.7); IMMATURE GRAN # 0.03 x10^3u/L (0.001-0.031); IMMATURE GRAN % 0.4 % (0.001-0.429); Lymphocyte (Absolute #) 2.52 x10^3/uL (1.18-3.74); Lymphocytes % 33.6 % (19.3-51.7); Mean Cell Volume 89.9 fL (79.4-94.8); Mean Corpuscular Hemoglobin 30.6 pg (25.6-32.2); Mean Platelet Volume 10.5 fL (9.4-12.3); Monocyte (Absolute #) 0.46 x10^3/uL (0.24-0.86); Monocytes % 6.1 % (4.7-12.5); Neutrophil % 57.7 % (34.0-71.1); Platelet Count 207 x10^3/uL (182-369); Red Blood Count 4.45 x10^6/uL (3.93-5.22); Red Cell Distribution Width 12.2 % (11.7-14.4); White Blood Count 7.5 x10^3/uL (3.98-10.04)
[2024-01-23 23:52] LABS: Appearance Clear (Clear); Bacteria None Seen /HPF (None Seen); Bilirubin Negative (Negative); Blood Negative (Negative); Epithelial Cells Rare /HPF (None Seen); Glucose, Urine Negative (Negative); Hyaline Casts NONE SEEN /LPF (0-2); Ketones Negative (Negative); Leukocyte Esterase Negative (Negative); Nitrite Negative (Negative); Ph 5.5 (4.6-8.0); Protein,Urine Dip Negative (Negative); RBC 0-2 /HPF (0-5); Specific Gravity >=1.030 (1.005-1.030); WBC 0-2 /HPF (0-5)
[2024-01-23 23:59] LABS: ALBUMIN 4.3 g/dL (3.5-5.0); ANION GAP 13.5 MEQ/L (5-15); BILIRUBIN,TOTAL 1.6 mg/dL (0.2-1.3); Calcium 9.3 mg/dL (8.4-10.2); Creatinine 1 0.83 mg/dL (0.52-1.04); EST GLOMERULAR FILTRATION RATE 102.8 ML/MIN; Potassium 4.2 mmol/L (3.5-5.1); Total Protein 7.3 g/dL (6.3-8.2)
[2024-01-24 00:04] LABS: HCG SERUM TEST NEGATIVE (NEGATIVE)
[2024-01-24 01:06] VITALS: BP 113/62; PULSE 87
[2024-01-24 01:14] LABS: CHLAMYDIA DNA NOT DETECTED (NEGATIVE); GC DNA Probe NOT DETECTED (NEGATIVE)
[2024-01-24 01:25] VITALS: O2SAT 99
== END 2024-01-24 01:32 | disposition home or self-care (01) ==
LOC: ED 23:14
DX: R10.9 Unspecified abdominal pain (principal)
CPT/HCPCS: 36415; 80053; 81001; 84703; 85025; 87491; 87591; 99283